=== PATIENT | female | born 1960 | race Caucasian/White ===

== ENCOUNTER 2020-04-12 15:27 | Emergency (ER) | payer OTHER ==
[2020-04-12 16:19] VITALS: BP 127/56; PULSE 107
[2020-04-12] MEDS ORDERED: Ondansetron 4 MG/2 ML SDV IVPUSH ONE (16:25)
[2020-04-12] MEDS ORDERED: Sodium Chloride 0.9% 1,000 ML IV STA (16:25)
[2020-04-12] MEDS ORDERED: Sodium Chloride 0.9% 10 ML Syringe FLUSH PRN (16:25)
[2020-04-12] MEDS ORDERED: HYDROmorphone 1 MG/ML Syringe IVPUSH ONE (16:26)
--- NOTE | 2020-04-12 17:38 | CT ---
CT abdomen and pelvis Technique: Multiple axial sections were obtained from above the dome of the diaphragm inferiorly through the pubic symphysis. Intravenous contrast was utilized. No oral contrast has been given. Comparison: No prior abdominal imaging is available. Findings: Inflammatory change is seen within the right lower abdomen which is around the cecum. There appears to be a dilated appendix being seen with several appendicoliths. Findings most likely represent appendicitis. Other findings: Visualized lung bases show nothing acute. Noncontrast appearance of the liver and spleen appears within normal limits. Lap band is in place. At least one calcified gallstone is seen within the gallbladder. Adrenal glands show no discrete nodule. Kidneys show no abnormal calcifications or hydronephrosis. No ureteral dilatation or ureteral stone is seen. Aorta shows no aneurysm. No retroperitoneal adenopathy is seen. Fat-containing umbilical hernia is noted. No pelvic mass or adenopathy is seen. Bone window settings were reviewed which shows scattered degenerative change within the spine. Impression: 1. Inflammatory change around the cecum. Slightly dilated appendix containing several appendicoliths. Inflammatory change most likely caused by appendicitis. 2. At least one gallstone. 3. Prior lap band. Diagnostic code #5 This report was dictated in MDT
--- NOTE | 2020-04-12 17:40 | EDM.PDOC ---
ED HPI GENERAL MEDICAL PROBLEM - General Chief Complaint: Abdominal Pain Stated Complaint: LOWER ABD PAIN Time Seen by Provider: 04/12/20 16:15 Source of Information: Reports: Patient History Limitations: Reports: No Limitations - History of Present Illness INITIAL COMMENTS - FREE TEXT/NARRATIVE: The patient presents with right lower abdominal pain. This all started a couple days ago. She has some nausea and decreased appetite. She still has her gallbladder and appendix. She had a fever at home. She has no cough, congestion or runny nose. She has no chest pain or shortness of breath. Onset: Gradual Duration: Day(s): Location: Reports: Abdomen Quality: Reports: Sharp Severity: Moderate Improves with: Reports: None Worsens with: Reports: None Associated Symptoms: Reports: Fever/Chills, Nausea/Vomiting. 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: , Other (See Below) Other INJECTION MOLDING MACHINE SETTER History: - Past Surgical History GI Surgical History: Reports: Bariatric Procedure, Other (See Below) Other GI Surgeries/Procedures: lap band Social & Family History - Tobacco Use Smoking Status *Q: Never Smoker Second Hand Smoke Exposure: No - Caffeine Use Caffeine Use: Reports: None - Recreational Drug Use Recreational Drug Use: No ED ROS GENERAL - Review of Systems Review Of Systems: See Below Constitutional: Reports: Fever HEENT: Reports: No Symptoms Respiratory: Reports: No Symptoms Cardiovascular: Reports: No Symptoms Endocrine: Reports: No Symptoms GI/Abdominal: Reports: Abdominal Pain, Nausea. Denies: Diarrhea : Reports: No Symptoms ED EXAM, GI/ABD - Physical Exam Exam: See Below Exam Limited By: No Limitations General Appearance: Alert, No Apparent Distress Ears: Normal External Exam Nose: Normal Inspection Head: Atraumatic, Normocephalic Neck: Normal Inspection Respiratory/Chest: No Respiratory Distress, Lungs Clear, Normal Breath Sounds Cardiovascular: Regular Rate, Rhythm, No Edema, No Murmur GI/Abdominal Exam: Soft, No Organomegaly, No Mass, Tender (Moderate tenderness in the RLQ) Course - Vital Signs Last Recorded V/S: Last Vital Signs Temp 97.7 F 04/12/20 16:14 Pulse 107 H 04/12/20 16:14 Resp 18 04/12/20 16:14 BP 127/56 L 04/12/20 16:14 Pulse Ox 92 L 04/12/20 16:14 - Orders/Labs/Meds Orders: Active Orders 24 hr Category Date Time Status Peripheral IV Care [RC] . DIRECTED Care 04/12/20 16:25 Active UA W/MICROSCOPIC [URIN] Stat Lab 04/12/20 18:10 Results Lactated Ringers [Ringers, Lactated] 1,000 ml Med 04/12/20 18:15 Active IV ASDIRECTED Sodium Chloride 0.9% [Saline Flush] Med 04/12/20 16:25 Active 10 ml FLUSH ASDIRECTED PRN ED Antiemetic Medication Reflex [OM.PC] Stat Oth 04/12/20 16:25 Ordered Peripheral IV Insertion Adult [OM.PC] Stat Oth 04/12/20 16:25 Ordered Medication Orders Lactated Ringer's (Ringers, Lactated) 1,000 mls @ 75 mls/hr IV ASDIRECTED SHANE Sodium Chloride (Saline Flush) 10 ml FLUSH ASDIRECTED PRN PRN Reason: Keep Vein Open Last Admin: 04/12/20 18:42 Dose: 10 ml Labs: Laboratory Tests 04/12/20 04/12/20 04/12/20 Range/Units 16:50 16:50 18:10 WBC 13.71 H (3.98-10.04) K/mm3 RBC 4.89 (3.98-5.22) M/mm3 Hgb 14.4 (11.2-15.7) gm/dl Hct 44.0 (34.1-44.9) % MCV 90.0 (79.4-94.8) fl MCH 29.4 (25.6-32.2) pg MCHC 32.7 (32.2-35.5) g/dl RDW Std Deviation 47.9 H (36.4-46.3) fL Plt Count 180 L (182-369) K/mm3 MPV 10.6 (9.4-12.3) fl Neut % (Auto) 90.1 H (34.0-71.1) % Lymph % (Auto) 3.9 L (19.3-51.7) % Frontier % (Auto) 5.6 (4.7-12.5) % Eos % (Auto) 0.1 L (0.7-5.8) Baso % (Auto) 0.1 (0.1-1.2) % Neut # (Auto) 12.34 H (1.56-6.13) K/mm3 Lymph # (Auto) 0.54 L (1.18-3.74) K/mm3 Frontier # (Auto) 0.77 H (0.24-0.36) K/mm3 Eos # (Auto) 0.01 L (0.04-0.36) K/mm3 Baso # (Auto) 0.02 (0.01-0.08) K/mm3 Manual Slide Review Abnormal smear Sodium 141 (136-145) mEq/L Potassium 3.3 L (3.5-5.1) mEq/L Chloride 102 (98-107) mEq/L Carbon Dioxide 28 (21-32) mEq/L Anion Gap 14.3 (5-15) BUN 11 (7-18) mg/dL Creatinine 0.8 (0.55-1.02) mg/dL Est Cr Clr Drug Dosing 65.38 mL/min Estimated GFR (MDRD) > 60 (>60) mL/min BUN/Creatinine Ratio 13.8 L (14-18) Glucose 114 H (74-106) mg/dL Calcium 9.5 (8.5-10.1) mg/dL Total Bilirubin 1.0 (0.2-1.0) mg/dL AST 47 H (15-37) U/L ALT 55 (14-59) U/L Alkaline Phosphatase 121 H (46-116) U/L Total Protein 7.9 (6.4-8.2) g/dl Albumin 4.0 (3.4-5.0) g/dl Globulin 3.9 gm/dL Albumin/Globulin Ratio 1.0 (1-2) Lipase 75 (73-393) U/L Urine Color Dark yellow (Yellow) Urine Appearance Cloudy H (Clear) Urine pH 6.0 (5.0-8.0) Ur Specific [place] > or = 1.030 (1.005-1.030) Urine Protein 2+ H (Negative) Urine Glucose (UA) Negative (Negative) Urine Ketones 3+ H (Negative) Urine Occult Blood Negative (Negative) Urine Nitrite Negative (Negative) Urine Bilirubin 2+ H (Negative) Urine Urobilinogen 0.2 (0.2-1.0) Ur Leukocyte Esterase 1+ H (Negative) Meds: Medications Generic Name Dose Route Start Last Admin Trade Name Freq PRN Reason Stop Dose Admin Lactated Ringer's 1,000 mls @ 75 mls/hr 04/12/20 18:15 Ringers, Lactated IV ASDIRECTED SHANE Sodium Chloride 10 ml 04/12/20 16:25 04/12/20 18:42 Saline Flush FLUSH 10 ml ASDIRECTED PRN Administration Keep Vein Open Discontinued Medications Generic Name Dose Route Start Last Admin Trade Name Freq PRN Reason Stop Dose Admin Hydromorphone HCl 1 mg 04/12/20 16:26 04/12/20 18:40 Dilaudid IVPUSH 04/12/20 16:27 1 mg ONETIME ONE Administration Sodium Chloride 1,000 mls @ 1,000 mls/hr 04/12/20 16:25 04/12/20 18:40 Normal Saline IV 04/12/20 17:24 1,000 mls/hr .BOLUS STA Administration Cefepime HCl 2 gm/ Premix 50 mls @ 100 mls/hr 04/12/20 17:54 04/12/20 18:41 IV 04/12/20 18:23 100 mls/hr ONETIME ONE Administration Ondansetron HCl 4 mg 04/12/20 16:25 04/12/20 18:35 Zofran IVPUSH 04/12/20 16:26 4 mg ONETIME ONE Administration - Re-Assessments/Exams Free Text/Narrative Re-Assessment/Exam: 04/12/20 17:38 I ordered an IV NS 1L bolus, zofran 4mg IV, dilaudid 1mg IV, labs, UA and a CT of her abdomen and pelvis. Her WBC was elevated at 13.71. Her K was a little low at 3.3. Her AST was elevated at 47. Her alk phos was elevated at 121. Her lipase was negative. I am waiting for the CT scan now. 04/12/20 18:[address] scan shows inflammatory change around the cecum. Slightly dilated appendix containing several appendicoliths. Inflammatory change most likely caused by appendicitis. I ordered cefepime 2 grams IV. I called Dr Fish our surgeon internet sales consultant and she was okay keeping her but she said our SEARCH MARKETING COORDINATOR's have a policy of not doing surgery on anyone over a BMI of 50. Her BMI is 54. I called Ricky Torres CRNA and he confirmed this. I called [facility] in [place] and talked with Dr Li and he accepted the patient. Departure - Departure Time of Disposition: 18:45 Disposition: DC/Tfer to Acute Hospital 02 Condition: Fair Clinical Impression: Appendicitis Qualifiers: Appendicitis type: acute appendicitis Acute appendicitis type: with localized peritonitis Appendicitis gangrene presence: without gangrene Appendicitis perforation presence: without perforation Appendicitis abscess presence: without abscess Qualified Code(s): K35.30 - Acute appendicitis with localized peritonitis, without perforation or gangrene - Discharge Information Referrals: PCP,Not In Area [Primary Care Provider] - Forms: ED Department Discharge Sepsis Event Note - Evaluation Sepsis Screening Result: No Definite Risk - Focused Exam Vital Signs: Vital Signs Temp Pulse Resp BP Pulse Ox 04/12/20 16:14 97.7 F 107 H 18 127/56 L 92 L Date Exam was Performed: 04/12/20 Time Exam was Performed: 18:42 - My Orders Last 24 Hours: My Active Orders 04/12/20 16:25 Peripheral IV Care [RC] . DIRECTED Sodium Chloride 0.9% [Saline Flush] 10 ml FLUSH ASDIRECTED PRN ED Antiemetic Medication Reflex [OM.PC] Stat Peripheral IV Insertion Adult [OM.PC] Stat 04/12/20 18:10 UA W/MICROSCOPIC [URIN] Stat 04/12/20 18:15 Lactated Ringers [Ringers, Lactated] 1,000 ml IV ASDIRECTED - Assessment/Plan Last 24 Hours: My Active Orders 04/12/20 16:25 Peripheral IV Care [RC] . DIRECTED Sodium Chloride 0.9% [Saline Flush] 10 ml FLUSH ASDIRECTED PRN ED Antiemetic Medication Reflex [OM.PC] Stat Peripheral IV Insertion Adult [OM.PC] Stat 04/12/20 18:10 UA W/MICROSCOPIC [URIN] Stat 04/12/20 18:15 Lactated Ringers [Ringers, Lactated] 1,000 ml IV ASDIRECTED
[2020-04-12] MEDS ORDERED: Cefepime 2 GM in Premix Bag 1 BAG IV ONE (17:54)
[2020-04-12] MEDS ORDERED: Lactated Ringers 1,000 ML IV SCH (18:15)
== END 2020-04-12 19:26 ==
LOC: JD.ED 15:27
DX: K35.30 Acute appendicitis with localized peritonitis, without perforation or gangrene (principal)
CPT/HCPCS: 36415; 74176; 80053; 81001; 83690; 85025; 96374; 96375; 99285; J0692; J1170; J2405; J7030